=== PATIENT | female | born 1930 | race Two or more races ===

== ENCOUNTER 2018-03-31 12:17 | Emergency (ER) | payer OTHER ==
[~2018-03-31] VITALS: Ht 154.9 cm; Wt 77.1 kg
[~2018-03-31 12:17] MED LIST: ALLEGRA ALLERGY60 MG; ASA81 MG; LOSARTAN-HCTZ1 EAC1; NABUMETONE500 MG PO; NEURONTIN300 MG; PERCOCET 5/3251 TAB PO; ULTRAM50 MG PO
== END 2018-03-31 18:38 | disposition home or self-care (01) ==
LOC: ER 12:17
DX: J11.1 Influenza due to unidentified influenza virus with other respiratory manifestations (principal)

== ENCOUNTER 2019-04-26 16:02 | Inpatient (IN) | payer OTHER ==
[~2019-04-26] VITALS: Ht 157.5 cm; Wt 72.6 kg
[2019-04-26] MEDS ORDERED: METOPROLOL SUCC50 MG (16:42)
[2019-04-26] MEDS ORDERED: QUETIAPINE FUMA50 MG (16:44)
[2019-04-26] MEDS ORDERED: ZANTAC300 MG (17:20)
[2019-04-26] MEDS ORDERED: SEROPHENE50 MG (17:21)
[2019-04-26] MEDS ORDERED: VITAMIN C500 M5 PO (17:24)
[2019-05-12] MEDS ORDERED: ASA-EC81 MG PO (14:15)
[2019-05-12] MEDS ORDERED: CARBIDOPA-LEVO1 EA11 NGT (14:15)
[2019-05-12] MEDS ORDERED: FLUCONAZOLE200 MG PO (14:16)
== END 2019-05-12 16:59 | disposition home or self-care (01) | DRG 689 ==
LOC: ER 16:02 → MEDI 04-27 10:35
PROVIDERS: ADMIT Internal Medicine
PROC: BW28ZZZ Computerized Tomography (CT Scan) of Head (ICD-10-PCS; 2019-04-27)
PROC: 3E0F7GC Introduction of Other Therapeutic Substance into Respiratory Tract, Via Natural or Artificial Opening (ICD-10-PCS; 2019-04-30)
PROC: B030ZZZ Magnetic Resonance Imaging (MRI) of Brain (ICD-10-PCS; 2019-05-01)
PROC: BW21ZZZ Computerized Tomography (CT Scan) of Abdomen and Pelvis (ICD-10-PCS; 2019-05-04)
PROC: 0DH63UZ Insertion of Feeding Device into Stomach, Percutaneous Approach (ICD-10-PCS; principal; 2019-05-09)
DX: N39.0 Urinary tract infection, site not specified (principal); A41.9 Sepsis, unspecified organism; R47.01 Aphasia; G23.1 Progressive supranuclear ophthalmoplegia [Steele-Richardson-Olszewski]; K56.690 Other partial intestinal obstruction; E46 Unspecified protein-calorie malnutrition; N20.0 Calculus of kidney; B96.29 Other Escherichia coli [E. coli] as the cause of diseases classified elsewhere; B96.89 Other specified bacterial agents as the cause of diseases classified elsewhere; G31.83 Neurocognitive disorder with Lewy bodies; F02.80 Dementia in other diseases classified elsewhere, unspecified severity, without behavioral disturbance, psychotic disturbance, mood disturbance, and anxiety; F32.89 Other specified depressive episodes; R13.10 Dysphagia, unspecified; R53.83 Other fatigue; E86.0 Dehydration; K56.41 Fecal impaction; K57.30 Diverticulosis of large intestine without perforation or abscess without bleeding; I10 Essential (primary) hypertension; J44.9 Chronic obstructive pulmonary disease, unspecified; K29.00 Acute gastritis without bleeding; M54.5 Low back pain; Z74.01 Bed confinement status
CPT/HCPCS: 70544

== ENCOUNTER 2019-05-24 09:50 | Inpatient (IN) | payer OTHER ==
[~2019-05-24] VITALS: Ht 157.5 cm; Wt 70.3 kg
[~2019-05-24 09:50] MED LIST changes: +ASA-EC81 MG PO; +CARBIDOPA-LEVO1 EA11 NGT; +FLUCONAZOLE200 MG PO; +METOPROLOL SUCC50 MG; +QUETIAPINE FUMA50 MG; +SEROPHENE50 MG; +VITAMIN C500 M5 PO; +ZANTAC300 MG
[2019-06-11] MEDS ORDERED: ASA-EC81 MG PO (12:27)
[2019-06-11] MEDS ORDERED: ACIDOPHILUS-PE1 EAC2 PO (12:27)
[2019-06-11] MEDS ORDERED: SINEMET 25-1001 EACH PO (12:27)
[2019-06-11] MEDS ORDERED: TOPROL XL50 M1 PO (12:28)
== END 2019-06-11 14:23 | disposition home or self-care (01) | DRG 394 ==
LOC: ER 09:50 → MEDJ 17:18
PROVIDERS: Surgery; ADMIT Internal Medicine
PROC: 0T9B70Z Drainage of Bladder with Drainage Device, Via Natural or Artificial Opening (ICD-10-PCS; 2019-05-24)
PROC: 0DH63UZ Insertion of Feeding Device into Stomach, Percutaneous Approach (ICD-10-PCS; principal; 2019-05-25 12:00)
PROC: 3E0H76Z Introduction of Nutritional Substance into Lower GI, Via Natural or Artificial Opening (ICD-10-PCS; 2019-05-26)
DX: K94.23 Gastrostomy malfunction (principal); J44.1 Chronic obstructive pulmonary disease with (acute) exacerbation; E44.0 Moderate protein-calorie malnutrition; N39.0 Urinary tract infection, site not specified; E86.0 Dehydration; G30.0 Alzheimer's disease with early onset; F02.80 Dementia in other diseases classified elsewhere, unspecified severity, without behavioral disturbance, psychotic disturbance, mood disturbance, and anxiety; G20 Parkinson's disease; I25.10 Atherosclerotic heart disease of native coronary artery without angina pectoris; G83.89 Other specified paralytic syndromes; D72.828 Other elevated white blood cell count; E87.8 Other disorders of electrolyte and fluid balance, not elsewhere classified; B96.5 Pseudomonas (aeruginosa) (mallei) (pseudomallei) as the cause of diseases classified elsewhere; I10 Essential (primary) hypertension; B96.29 Other Escherichia coli [E. coli] as the cause of diseases classified elsewhere; K59.09 Other constipation; R31.0 Gross hematuria; Z74.01 Bed confinement status

== ENCOUNTER 2019-07-01 13:18 | Emergency (ER) | payer OTHER ==
[~2019-07-01] VITALS: Ht 144.8 cm; Wt 45.4 kg
[~2019-07-01 13:18] MED LIST changes: +ACIDOPHILUS-PE1 EAC2 PO; +SINEMET 25-1001 EACH PO; +TOPROL XL50 M1 PO
[2019-07-01] MEDS ORDERED: MANNXTRA300 GM (13:51)
== END 2019-07-01 14:20 | disposition home or self-care (01) ==
LOC: ER 13:18
DX: L98.498 Non-pressure chronic ulcer of skin of other sites with other specified severity (principal); K94.23 Gastrostomy malfunction

== ENCOUNTER 2019-11-28 06:32 | Inpatient (IN) | payer OTHER ==
[~2019-11-28] VITALS: Ht 157.5 cm; Wt 72.6 kg
[~2019-11-28 06:32] MED LIST changes: +MANNXTRA300 GM
[2019-12-07] MEDS ORDERED: SINEMET 25-1001 EACH PO (09:46)
[2019-12-07] MEDS ORDERED: TOPROL XL50 M1 PO (09:46)
== END 2019-12-07 11:53 | disposition home or self-care (01) | DRG 690 ==
LOC: ER 06:32 → MEDJ 14:55 → SEC-K 14:55 → MEDJ 19:20
PROVIDERS: ADMIT Internal Medicine
DX: N39.0 Urinary tract infection, site not specified (principal); B37.49 Other urogenital candidiasis; G23.1 Progressive supranuclear ophthalmoplegia [Steele-Richardson-Olszewski]; I10 Essential (primary) hypertension; G20 Parkinson's disease; F02.80 Dementia in other diseases classified elsewhere, unspecified severity, without behavioral disturbance, psychotic disturbance, mood disturbance, and anxiety; E87.6 Hypokalemia; E86.0 Dehydration; J44.9 Chronic obstructive pulmonary disease, unspecified; I25.10 Atherosclerotic heart disease of native coronary artery without angina pectoris; Z93.1 Gastrostomy status; B96.29 Other Escherichia coli [E. coli] as the cause of diseases classified elsewhere; Z74.01 Bed confinement status